=== PATIENT | male | born 1970 | race Caucasian/White ===

== ENCOUNTER 2017-03-18 12:31 | Day surgery (SDC) | payer OTHER ==
[~2017-03-18 12:31] MED LIST: DIPRIVAN 200 MG/20 ML IV ONE; Kenalog-40 IM ONE; Lactated Ringers 1,000 ML IV ONE; Sensorcaine 0.25% 10 ML IJ ONE
--- NOTE | 2017-03-18 17:19 | XRAY ---
11 seconds fluoroscopy time in surgery for left side L2-5 MBB.
--- NOTE | 2017-03-20 02:42 | XRAY ---
Indication: Left L2-L5 MBB. Intraoperative fluoroscopy was provided for 11 seconds. Single digital spot image submitted for interpretation demonstrates 4 posterior spinal needles with the tips projected over the expected course of the left L2-L5 nerve roots. Correlate with intraoperative findings/report.
== END 2017-03-18 14:10 | disposition home or self-care (01) ==
LOC: SDC-PAIN 12:31
PROVIDERS: ATTEND Pain Medicine Interventional Pain Medicine
DX: G56.01 Carpal tunnel syndrome, right upper limb (principal); M51.26 Other intervertebral disc displacement, lumbar region; M54.5 Low back pain; Z79.891 Long term (current) use of opiate analgesic
CPT/HCPCS: 64493; 64494; 64495; 72020; 77003; J2704; J3301

== ENCOUNTER 2020-03-12 05:16 | Emergency (ER) | payer OTHER ==
[2020-03-12 05:23] VITALS: O2SAT 98
--- NOTE | 2020-03-12 05:38 | ERPHSYRPT ---
- History of Present Illness Time Seen by Provider: 03/12/20 05:32 Source: patient Exam Limitations: no limitations Patient Subjective Stated Complaint: pt c/o tooth pain due to broken tooth/ abscess Triage Nursing Assessment: pt c/o tooth pain to rt upper side front tooth, due to broke tooth off yesterday while eating pizza. Pt states, "its abscessed". Pain and swelling to area. Physician History: PT has hx of some dental problems and began to note swelling of face with tenderness at broken Right upper tooth yesterday after eating pizza. He is swallowing OK . the digastric triangle is supple as is floor of mouth. percussion of the tooth reproduces pain consistently. No meningismus Timing/Duration: abrupt onset, days Severity: moderate ENT Location: dental Prearrival Treatment: over the counter meds Modifying Factors: Improves With: other (eating produces pain) Associated Symptoms: facial pain/swelling, jaw pain, tooth pain, No drooling Allergies/Adverse Reactions: No Known Drug Allergies Allergy (Verified 03/12/20 05:28) Hx Tetanus, Diphtheria Vaccination/Date Given: Yes Hx Influenza Vaccination/Date Given: No Hx Pneumococcal Vaccination/Date Given: No Immunizations Up to Date: Yes Travel Risk - International Travel Have you traveled outside of the country in past 3 weeks: No Have you or anyone close to you been diagnosed with or: No Do your reside in a community with a known COVID-19 case?: Yes If Yes where:: [place] - Coronavirus Screening Has patient experienced Coronavirus symptoms: No - Review of Systems Constitutional: No Fever, No Chills Eyes: No Symptoms Ears, Nose, & Throat: Other (tender right upper tooth) Respiratory: No Cough, No Dyspnea Cardiac: No Chest Pain, No Edema, No Syncope Abdominal/Gastrointestinal: No Abdominal Pain, No Nausea, No Vomiting, No Diarrhea Genitourinary Symptoms: No Dysuria Musculoskeletal: No Back Pain, No Neck Pain Skin: No Symptoms, No Rash Neurological: No Dizziness, No Focal Weakness, No Sensory Changes Psychological: No Symptoms Endocrine: No Symptoms Hematologic/Lymphatic: No Symptoms Immunological/Allergic: No Symptoms All Other Systems: Reviewed and Negative - Past Medical History Pertinent Past Medical History: Yes Neurological History: No Pertinent History ENT History: No Pertinent History Cardiac History: No Pertinent History Respiratory History: No Pertinent History Endocrine Medical History: No Pertinent History Musculoskeletal History: Arthritis, Degenerative Disk Disease, Fractures GI Medical History: No Pertinent History History: No Pertinent History Psycho-Social History: No Pertinent History Male Reproductive Disorders: No Pertinent History - Past Surgical History Past Surgical History: No - Social History Smoking Status: Former smoker Exposure to second hand smoke: Yes Drug Use: none Patient Lives Alone: No - Nursing Vital Signs Nursing Vital Signs: Initial Vital Signs Temperature 98.1 F 03/12/20 05:22 Pulse Rate 111 H 03/12/20 05:22 Respiratory Rate 18 03/12/20 05:22 Blood Pressure 194/124 03/12/20 05:22 O2 Sat by Pulse Oximetry 98 03/12/20 05:22 Pain Scale Pain Intensity 6 - Physical Exam General Appearance: no apparent distress, alert Eye Exam: bilateral eye: PERRL, EOMI Ear Exam: bilateral ear: auricle normal, canal normal, TM normal Nasal Exam: normal inspection Throat Exam: pharynx normal, moist mucus membranes, No tonsillar exudate Neck Exam: normal inspection, non-tender, supple, full range of motion, trachea midline, No lymphadenopathy (R), No lymphadenopathy (L), No Brudzinski's sign, No Kernig's sign, No meningismus Cardiovascular/Respiratory Exam: normal breath sounds, regular rate/rhythm Abdominal Exam: non-tender, soft Neurologic Exam: alert, oriented x 3, sensation nml, No motor deficits Skin Exam: normal color, warm, dry SpO2 Interpretation: normal SpO2: 98 O2 Delivery: Room Air - Course Nursing assessment & vital signs reviewed: Yes Ordered Tests: Active Orders 24 hr Category Date Time Status Isolation, Initiate & Maintain Q4H Care 03/12/20 05:28 Active - Progress Progress: improved, re-examined Progress Note: 03/12/20 05:56 pt has no headache no CP or shortness of breath or outward signs and/or symptoms of immediate end organ effects from his elevated BP at this time and the source of pain is likely producing and contributing to his elevated BP reading at this time. 03/12/20 06:05 Per patient he is on BP med and has run out and it has run out but has been forgetting to renew this it is amlodipine and HCTZ and will see his Dr to renew this this week and return meantime if any problems. 05/25/20 06:16 Counseled pt/family regarding: diagnosis, need for follow-up - Departure Departure Disposition: Home Clinical Impression: dental abscess right upper, Hypertension Condition: Good Critical Care Time: No Referrals: PAUL SINGH MD [Primary Care Provider] - Instructions: Tooth Abscess (DC), Tooth Decay, Adult (DC), High Blood Pressure in Adults Additional Instructions: followup with your dentist this week as planned. return meantime if not improving, fever, vomiting , trouble swallowing or other concerns. followup with your Dr for treatment of your blood pressure also this week as prescription may need adjustment. Take your BP medicine daily , and return meantime if the blood pressure does not respond and return to normal levels or if any symptoms such as chest pain, shortness of breath headache , dizziness or other concerns. this will require monitoring of your potassium with your Dr. also and adjustment of your meds for optimal control. Prescriptions: Hydrocodone/APAP 5-325 Tab^^^ [[place] 5-325 Tablet^^^] 1 tab PO Q6HPRN PRN #14 tablet MDD 6 PRN Reason: Pain Amlodipine/Valsartan/Hcthiazid [Tivid-Gkfka-Kzhc 5-160-12.5 mg] 1 each PO DAILY #20 tablet Amoxicillin/Potassium Clav [Augmentin 875-125 Tablet] 875 mg PO BID #20 tablet
[2020-03-12] MEDS ORDERED: Augmentin 875-125 Tablet PO ONE (05:54)
[2020-03-12] MEDS ORDERED: NORCO 5/325 MG PO ONE (05:54)
[2020-03-12] MEDS ORDERED: NORCO 5/325 MG ONE (05:58)
[2020-03-12] MEDS ORDERED: Augmentin 875-125 Tablet ONE (05:58)
[2020-03-12] MEDS ORDERED: NORVASC 5 MG ONE (06:18)
[2020-03-12] MEDS ORDERED: NORVASC 5 MG PO ONE (06:19)
[2020-03-12] MEDS ORDERED: hydroDIURIL 25 MG ONE (06:23)
[2020-03-12] MEDS ORDERED: DIOVAN 80 MG ONE (06:23)
[2020-03-12] MEDS ORDERED: DIOVAN 80 MG PO ONE (06:23)
[2020-03-12 07:06] VITALS: BP 188/124; PULSE 85
[2020-03-12] MEDS ORDERED: hydroDIURIL 25 MG PO SCH (10:00)
== END 2020-03-12 07:20 | disposition home or self-care (01) ==
LOC: ED 05:16
DX: K04.7 Periapical abscess without sinus (principal); I10 Essential (primary) hypertension; S02.5XXA Fracture of tooth (traumatic), initial encounter for closed fracture
CPT/HCPCS: 99283; A9270-GY

== ENCOUNTER 2021-06-18 20:39 | Emergency (ER) | payer OTHER ==
--- NOTE | 2021-06-18 21:36 | ERPHSYRPT ---
- History of Present Illness Time Seen by Provider: 06/18/21 20:57 Source: patient Exam Limitations: no limitations Patient Subjective Stated Complaint: pt states "I was around a covid positive person and now I have a cough and fever." Triage Nursing Assessment: pt ambulated into the er; pt is axo x4; c/o cough and fever; pt states that he was around a covid positive person; pt states that he took tylenol for fever 6 hours ago; pt states that he has a dry hacking cough; no cough present at time of assessment; do distress present at time of assessment; pt O2 100% on room; lung sounds clear in all lobes; clear heart tone; temp of 101.4; hypertension Physician History: 50 years old fairly healthy male presented to ER with chief complaint of flulike symptoms for the last 2 days after he had a positive exposure to known COVID-19 patient. Patient reports low-grade fever with a T-max of 102 which does respond to Tylenol with associated minimal dry cough and nasal congestion. No chest pain or shortness of breath. No abdominal pain nausea vomiting. Patient wants to be tested for COVID-19. Timing/Duration: day(s) (2), constant, gradual onset, worse Cough Quality/Degree: mild, dry cough Possible Cause: illness exposure Modifying Factors: Improves With: nothing Associated Symptoms: fever, chills, cough, headache, lightheadedness, muscle aches, nasal congestion, sinus infection, sore throat, No chest pain/soreness, No facial pain, No shortness of breath Allergies/Adverse Reactions: No Known Drug Allergies Allergy (Verified 06/18/21 20:59) Hx Tetanus, Diphtheria Vaccination/Date Given: Yes Hx Influenza Vaccination/Date Given: No Hx Pneumococcal Vaccination/Date Given: No Travel Risk - International Travel Have you traveled outside of the country in past 3 weeks: No - Coronavirus Screening Are you exhibiting any of the following symptoms?: Yes Symptoms: Fever, Cough: New Onset, Headaches/Body Aches/Fatigue Close contact with a COVID-19 positive Pt in past 14-21 Days: Yes - Vaccine Status Have you recieved a Covid-19 vaccination: No - Review of Systems Constitutional: Fever, Chills, Fatigue, Weakness Eyes: No Symptoms Ears, Nose, & Throat: Nose Congestion Respiratory: Cough, No Dyspnea, No Dyspnea on Exertion (GRAHAM), No Wheezing Cardiac: No Symptoms Abdominal/Gastrointestinal: No Symptoms Genitourinary Symptoms: No Symptoms Musculoskeletal: Myalgias Skin: No Symptoms Neurological: No Symptoms Psychological: No Symptoms Endocrine: No Symptoms Hematologic/Lymphatic: No Symptoms Immunological/Allergic: No Symptoms - Past Medical History Pertinent Past Medical History: Yes Neurological History: No Pertinent History ENT History: No Pertinent History Cardiac History: No Pertinent History Respiratory History: No Pertinent History Endocrine Medical History: No Pertinent History Musculoskeletal History: Arthritis, Degenerative Disk Disease, Fractures GI Medical History: No Pertinent History History: No Pertinent History Psycho-Social History: No Pertinent History Male Reproductive Disorders: No Pertinent History - Past Surgical History Past Surgical History: No - Social History Smoking Status: Current every day smoker Exposure to second hand smoke: Yes Drug Use: none Patient Lives Alone: No - Nursing Vital Signs Nursing Vital Signs: Initial Vital Signs Temperature 101.4 F 06/18/21 21:00 Pulse Rate 89 06/18/21 21:00 Respiratory Rate 18 06/18/21 21:00 Blood Pressure 189/109 06/18/21 21:00 O2 Sat by Pulse Oximetry 100 06/18/21 21:00 Pain Scale Pain Intensity 5 - Physical Exam General Appearance: no apparent distress, alert Eye Exam: PERRL/EOMI, eyes nml inspection Ears, Nose, Throat Exam: TMs normal, pharyngeal erythema Neck Exam: normal inspection, non-tender, supple, full range of motion Respiratory Exam: normal breath sounds, lungs clear Cardiovascular Exam: regular rate/rhythm, normal heart sounds Gastrointestinal/Abdomen Exam: soft, normal bowel sounds, No tenderness Back Exam: normal inspection, normal range of motion Extremity Exam: normal inspection, normal range of motion Neurologic Exam: alert, oriented x 3, cooperative Skin Exam: normal color SpO2 Interpretation: normal SpO2: 100 O2 Delivery: Room Air Ordered Tests: Active Orders 24 hr Category Date Time Status CHEST 1 VIEW (PORTABLE) Stat Exams 06/18/21 21:09 Taken Medication Summary Discontinued Medications Generic Name Dose Route Start Last Admin Trade Name Freq PRN Reason Stop Dose Admin Acetaminophen 1,000 mg 06/18/21 21:55 06/18/21 21:56 Tylenol Extra Strength 500 Mg PO 06/18/21 21:56 1,000 mg STAT ONE Administration Acetaminophen Confirm 06/18/21 21:55 Tylenol Extra Strength 500 Mg Administered 06/18/21 21:56 Dose 1,000 mg .ROUTE .STK-MED ONE - Progress Progress: improved Air Movement: good Progress Note: Given Tylenol for symptomatic relief. Lungs bilateral clear to auscultation and x-rays questionable airspace disease on the right, will start him on Zithromax, Decadron and albuterol. COVID-19 testing obtained. Patient is maintaining vitals with saturation around 98% on room air without any tachypnea tachycardia or toxic appearance. Limited contact/droplet precautions Supportive care recommended 06/18/21 22:04 Blood Culture(s) Obtained: No Antibiotics given: No Counseled pt/family regarding: diagnosis, need for follow-up, rad results - Departure Departure Disposition: Home Clinical Impression: Viral syndrome, Suspected COVID-19 virus infection Condition: Stable Critical Care Time: No Referrals: PAUL SINGH MD [Primary Care Provider] - Follow Up with PCP/3 days Instructions: Cough, Adult (DC) Additional Instructions: Use contact/droplet precautions until your COVID-19 test is back. Tylenol as needed for fever greater than 100.4. Keep yourself well-hydrated. Return to ER for persistent high-grade fever, worsening cough or if develop shortness of breath etc. Prescriptions: Azithromycin 250 mg PO DAILY 4 Days #4 tablet Dexamethasone [Decadron] 6 mg PO DAILY 5 Days #5 tablet Albuterol 8 gm Mdi Hfa [Ventolin Hfa MDI] 8 gm IH Q4H #1 gm
[2021-06-18] MEDS ORDERED: TYLENOL EXTRA STRENGTH 500 MG ONE (21:55)
[2021-06-18] MEDS ORDERED: TYLENOL EXTRA STRENGTH 500 MG PO ONE (21:55)
[2021-06-18] MEDS ORDERED: Zithromax 250 MG TABLET PO ONE (22:05)
[2021-06-18] MEDS ORDERED: DECADRON 10MG INJ. PO ONE (22:05)
[2021-06-18] MEDS ORDERED: Zithromax 250 MG TABLET ONE (22:26)
[2021-06-18] MEDS ORDERED: DECADRON 10MG INJ. ONE (22:26)
[2021-06-18 22:43] VITALS: BP 161/104; PULSE 88; O2SAT 99
--- NOTE | 2021-06-19 09:01 | XRAY ---
Indication: Suspect Covid 19. Comparison: None Portable chest demonstrates normal heart, lungs, and bony thorax with a few incidental left lung calcified granulomas.
== END 2021-06-18 22:43 | disposition home or self-care (01) ==
LOC: ED 20:39
DX: B34.9 Viral infection, unspecified (principal); Z20.822 Contact with and (suspected) exposure to COVID-19; R05 Cough; R50.9 Fever, unspecified
CPT/HCPCS: 71045; 99284; U0003; J1100; A9270-GY

== ENCOUNTER 2022-06-23 23:10 | Emergency (ER) | payer OTHER ==
[2022-06-23] MEDS ORDERED: TORAdol 30 mg Injection IM ONE (23:34)
[2022-06-23] MEDS ORDERED: Augmentin 875-125 Tablet PO ONE (23:34)
[2022-06-23] MEDS ORDERED: TORAdol 30 mg Injection ONE (23:36)
[2022-06-23] MEDS ORDERED: Augmentin 875-125 Tablet ONE (23:37)
--- NOTE | 2022-06-23 23:49 | ERPHSYRPT ---
- History of Present Illness Time Seen by Provider: 06/23/22 23:28 Source: patient Exam Limitations: no limitations Patient Subjective Stated Complaint: pt states "I have a tooth abscess." Triage Nursing Assessment: pt ambulated into the er; pt is axo x4; c/o toothache; pt states 7/10 pain to rt side of face; pt has multiple caries; multiple missing teeth; swelling present to rt lower jaw; hypertension Physician History: 51-year-old male with multiple broken teeth with periodontal disease presented in the ER with lower jaw pain and swelling progressively worsening for 1 week, moderate to severe sharp more with movements. No fever or chills reported. Has upcoming appointment with dentist this week. Timing/Duration: gradual onset, weeks (1) Severity: moderate, severe ENT Location: dental Prearrival Treatment: over the counter meds Associated Symptoms: tooth pain Allergies/Adverse Reactions: No Known Drug Allergies Allergy (Verified 06/23/22 23:16) Home Medications: Lisinopril/Hydrochlorothiazide [Zestoretic 20-12.5 mg Tablet] 1 each PO DAILY 06/23/22 [History] Hx Tetanus, Diphtheria Vaccination/Date Given: Yes Hx Influenza Vaccination/Date Given: Yes Hx Pneumococcal Vaccination/Date Given: No Travel Risk - International Travel Have you traveled outside of the country in past 3 weeks: No - Coronavirus Screening Are you exhibiting any of the following symptoms?: No Close contact with a COVID-19 positive Pt in past 14-21 Days: No - Vaccine Status Have you recieved a Covid-19 vaccination: No - Review of Systems Constitutional: No Symptoms Eyes: No Symptoms Ears, Nose, & Throat: Loose Teeth Respiratory: No Symptoms Cardiac: No Symptoms Musculoskeletal: No Symptoms Skin: No Symptoms Neurological: No Symptoms Psychological: No Symptoms Immunological/Allergic: No Symptoms - Past Medical History Pertinent Past Medical History: Yes Neurological History: No Pertinent History ENT History: No Pertinent History Cardiac History: High Cholesterol Respiratory History: No Pertinent History Endocrine Medical History: No Pertinent History Musculoskeletal History: Arthritis, Degenerative Disk Disease, Fractures GI Medical History: No Pertinent History History: No Pertinent History Psycho-Social History: No Pertinent History Male Reproductive Disorders: No Pertinent History - Past Surgical History Past Surgical History: No - Social History Smoking Status: Current every day smoker Exposure to second hand smoke: Yes Drug Use: none Patient Lives Alone: No - Nursing Vital Signs Nursing Vital Signs: Initial Vital Signs Temperature 97.6 F 06/23/22 23:17 Pulse Rate 99 H 06/23/22 23:17 Respiratory Rate 18 06/23/22 23:17 Blood Pressure 173/103 06/23/22 23:17 O2 Sat by Pulse Oximetry 100 06/23/22 23:17 Pain Scale Pain Intensity 7 - Physical Exam General Appearance: no apparent distress, alert Eye Exam: bilateral eye: normal inspection, PERRL, EOMI Ear Exam: bilateral ear: auricle normal, canal normal, TM normal Nasal Exam: normal inspection Throat Exam: pharynx normal, dental tenderness (Multiple eroded teeth with periodontal disease, swollen right lower jaw, firm consistency, negative fluctuation.) Neck Exam: normal inspection, supple, full range of motion Cardiovascular/Respiratory Exam: normal breath sounds, regular rate/rhythm Neurologic Exam: alert, oriented x 3, 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, normal m ood/affect Skin Exam: normal color SpO2 Interpretation: normal SpO2: 100 O2 Delivery: Room Air Ordered Tests: Medication Summary Discontinued Medications Generic Name Dose Route Start Last Admin Trade Name oBlaq PRN Reason Stop Dose Admin Amoxicillin/Clavulanate Potassium 875 mg 06/23/22 23:34 06/23/22 23:37 Amox Tr/Potassium Clavulanate 875 Mg Tablet PO 06/23/22 23:35 875 mg STAT ONE Administration Amoxicillin/Clavulanate Potassium Confirm 06/23/22 23:37 Amox Tr/Potassium Clavulanate 875 Mg Tablet Administered 06/23/22 23:38 Dose 875 mg .ROUTE .STK-MED ONE Ketorolac Tromethamine 30 mg 06/23/22 23:34 06/23/22 23:37 Ketorolac Tromethamine 30 Mg/Ml Inj IM 06/23/22 23:35 30 mg STAT ONE Administration Ketorolac Tromethamine Confirm 06/23/22 23:36 Ketorolac Tromethamine 30 Mg/Ml Inj Administered 06/23/22 23:37 Dose 30 mg .ROUTE .STK-MED ONE - Progress Progress: improved, pain not gone completely Progress Note: 06/23/22 23:50 Given Toradol for symptomatic relief, started on antibiotics. Recommended outpatient dental follow-up. Counseled pt/family regarding: diagnosis, need for follow-up - Departure Departure Disposition: Home Clinical Impression: Dental infection Condition: Stable Critical Care Time: No Referrals: PAUL SINGH MD [Primary Care Provider] - Follow up/PCP as directed Instructions: Tooth Abscess (DC), Dental Pain (DC) Additional Instructions: Keep appointment with your dentist. Take Tylenol/ibuprofen as needed. Return to ER for increasing pain swelling, fever chills etc. Prescriptions: Ibuprofen 600 mg PO Q6HPRN PRN 10 Days #20 tablet PRN Reason: Pain Amox Tr/Potass Clav. 875 mg [Augmentin 875-125 Tablet] 875 mg PO BID #14 tablet
[2022-06-24 00:02] VITALS: BP 163/102; PULSE 87; O2SAT 99
== END 2022-06-24 00:05 | disposition home or self-care (01) ==
LOC: ED 23:10
DX: K04.7 Periapical abscess without sinus (principal); K08.89 Other specified disorders of teeth and supporting structures; E78.5 Hyperlipidemia, unspecified; Z72.0 Tobacco use; Z79.899 Other long term (current) drug therapy; Z28.310 Unvaccinated for COVID-19
CPT/HCPCS: 96372; 99283; J1885; A9270-GY

== ENCOUNTER 2024-09-28 19:28 | Emergency (ER) | payer OTHER ==
[2024-09-28 19:40] VITALS: TEMP 97.7
--- NOTE | 2024-09-28 20:26 | ERPHSYRPT ---
- History of Present Illness Time Seen by Provider: 09/28/24 20:24 Source: patient Exam Limitations: no limitations Patient Subjective Stated Complaint: C/O Fall. Patient states he fell and hit his head. Patient states his mother found him on the ground. He estimates he was lying there for 30 minutes prior to her finding him. When asked why he didn't get up, patient answered, "I don't know, I think I might have been knocked out." Triage Nursing Assessment: Patient arrived by ambulance. He is alert and oriented. No SOB. Skin is warm to touch. WILSON WNL. Cooperative with staff but refusing rectal temperature. Physician History: Patient is a 53-year-old male presents to our ED for evaluation of "found down". Patient was reportedly at his home. Patient's mother reports finding him laying on his home deck. Patient states that he was lying for approximately 30 minutes prior to her finding him. Patient is not sure whether or not he passed out. He reports walking on his deck. He states it was "slick". Patient believes he slipped fell and hit his head and subsequently "passed out". No associated chest pain or shortness of breath. No nausea vomiting or diaphoresis. Patient has no specific complaints. No neck pain. Cervical spine cleared clinically. Patient voices no other complaints or concerns at this time. Portions of this note were created with voice recognition technology. There may be grammatical, spelling, punctuation or sound alike errors Timing/Duration: today Severity: moderate Modifying Factors: Improves With: nothing Associated Symptoms: denies symptoms Allergies/Adverse Reactions: No Known Drug Allergies Allergy (Verified 09/28/24 19:37) Home Medications: Lisinopril/Hydrochlorothiazide [Zestoretic 20-12.5 mg Tablet] 1 each PO DAILY 06/23/22 [History] Hx Tetanus, Diphtheria Vaccination/Date Given: Yes Hx Influenza Vaccination/Date Given: Yes Hx Pneumococcal Vaccination/Date Given: No Immunizations Up to Date: Yes Travel Risk - International Travel Have you traveled outside of the country in past 3 weeks: No - Emerging Infectious Disease Are you exhibiting symptoms associated with any current EIDs: No - Review of Systems Constitutional: No Symptoms, No Fever, No Chills Eyes: No Symptoms Ears, Nose, & Throat: No Symptoms Respiratory: No Symptoms, No Cough, No Dyspnea Cardiac: No Symptoms, No Chest Pain, No Edema, No Syncope Abdominal/Gastrointestinal: No Symptoms, No Abdominal Pain, No Nausea, No Vomiting, No Diarrhea Genitourinary Symptoms: No Symptoms, No Dysuria Musculoskeletal: No Symptoms, No Back Pain, No Neck Pain Skin: No Symptoms, No Rash Neurological: No Symptoms, No Dizziness, No Focal Weakness, No Sensory Changes Psychological: No Symptoms Endocrine: No Symptoms Hematologic/Lymphatic: No Symptoms Immunological/Allergic: No Symptoms All Other Systems: Reviewed and Negative - Past Medical History Pertinent Past Medical History: Yes Neurological History: No Pertinent History ENT History: No Pertinent History Cardiac History: High Cholesterol, Hypertension Respiratory History: No Pertinent History Endocrine Medical History: No Pertinent History Musculoskeletal History: Arthritis, Degenerative Disk Disease, Fractures GI Medical History: No Pertinent History History: No Pertinent History Psycho-Social History: No Pertinent History Male Reproductive Disorders: No Pertinent History - Past Surgical History Past Surgical History: No - Social History Smoking Status: Current every day smoker Exposure to second hand smoke: Yes Drug Use: none Patient Lives Alone: No - Social Determinants of Health Will the patient participate in the screening: Declined to provide - Nursing Vital Signs Nursing Vital Signs: Initial Vital Signs Temperature 97.7 F 09/28/24 19:28 Pulse Rate 86 09/28/24 19:28 Respiratory Rate 19 09/28/24 19:28 O2 Sat by Pulse Oximetry 97 09/28/24 19:28 Pain Scale Pain Intensity 0 - Physical Exam General Appearance: no apparent distress, alert Eye Exam: PERRL/EOMI, eyes nml inspection Ears, Nose, Throat Exam: normal ENT inspection, TMs normal, pharynx normal, mois t mucous membranes Neck Exam: normal inspection, non-tender, supple, full range of motion Respiratory Exam: normal breath sounds, lungs clear, No respiratory distress Cardiovascular Exam: regular rate/rhythm, normal heart sounds, normal peripheral pulses Gastrointestinal/Abdomen Exam: soft, normal bowel sounds, No tenderness, No mass Back Exam: normal inspection, normal range of motion, No CVA tenderness, No vertebral tenderness Extremity Exam: normal inspection, normal range of motion, pelvis stable Neurologic Exam: alert, oriented x 3, cooperative, normal mood/affect, sensation nml, No motor deficits Skin Exam: normal color, warm, dry, No rash Lymphatic Exam: No adenopathy SpO2 Interpretation: normal SpO2: 93 O2 Delivery: Room Air - Course Nursing assessment & vital signs reviewed: Yes EKG Interpreted by Me: RATE (95), Sinus Rhythm, NORMAL AXIS, prolonged QT interval, NORMAL QRS - Radiology Exams Chest X-ray Interpretation: Interpreted by me (No acute findings) - CT Exams Head CT Interpretation: Tele-radiologist Report (Nonacute senile brain. Bilateral ethmoid sinus disease) Ordered Tests: Active Orders 24 hr Category Date Time Status Product Controller STAT Care 09/28/24 20:27 Active EKG-ER Only STAT Care 09/28/24 20:26 Active IV Insertion STAT Care 09/28/24 20:26 Active Pulse Oximetry (ED) STAT Care 09/28/24 20:26 Active CHEST 1 VIEW (PORTABLE) Stat Exams 09/28/24 21:38 Taken HEAD WITHOUT CONTRAST [CT] Stat Exams 09/28/24 20:32 Taken ACETAMINOPHEN Stat Lab 09/28/24 20:15 Completed CBC W DIFF Stat Lab 09/28/24 20:15 Completed CMP Stat Lab 09/28/24 20:15 Completed ETHYL ALCOHOL Stat Lab 09/28/24 20:15 Completed MAG [MAGNESIUM] Stat Lab 09/28/24 20:30 Completed NT PRO BNPII Stat Lab 09/28/24 20:15 Completed SALICYLATE Stat Lab 09/28/24 20:15 Completed TROPONIN Q4H Lab 09/28/24 20:15 Completed TROPONIN Q4H Lab 09/29/24 00:28 Received TROPONIN Q4H Lab 09/29/24 04:30 Ordered UA W/RFX UR CULTURE Stat Lab 09/29/24 00:38 Ordered Urine Triage Profile Stat Lab 09/29/24 00:38 Ordered Medication Summary Generic Name Dose Route Start Last Admin Trade Name Freq PRN Reason Stop Dose Admin Sodium Chloride 1,000 mls @ 100 mls/hr 09/28/24 20:30 09/28/24 20:41 Sodium Chloride 0.9% 1000 Ml IV 10/28/24 20:29 100 mls/hr .Q10H CHIOMA Administration Lab/Rad Data: Laboratory Result Diagrams 09/28/24 20:15 09/28/24 20:15 Laboratory Results 09/28/24 09/28/24 09/28/24 Range/Units 20:30 20:15 20:15 WBC (4.23-9.07) x10^3/uL RBC (4.63-6.08) x10^6/uL Hgb (13.7-17.5) g/dL Hct (40.1-51.0) % MCV (79.0-92.2) fL MCH (25.7-32.2) pg MCHC (32.3-36.5) g/dL RDW (11.6-14.4) % Plt Count (163-337) x10^3/uL MPV (9.4-12.4) fL Gran % (34.0-67.9) % Immature Gran % (Auto) (0.001-0.429) % Nucleat RBC Rel Count (0.00-0.2) % Eos # (Auto) (0.04-0.54) x10^3/uL Immature Gran # (Auto) (0.001-0.031) x10^3u/L Absolute Lymphs (auto) (1.32-3.57) x10^3/uL Absolute Monos (auto) (0.30-0.82) x10^3/uL Absolute Nucleated RBC (0.00-0.012) x10^3u/L Lymphocytes % (21.8-53.1) % Monocytes % (5.3-12.2) % Eosinophils % (0.8-7.0) % Basophils % (0.2-1.2) % Absolute Granulocytes (1.78-5.38) x10^3/uL Basophils # (0.01-0.08) x10^3/uL Sodium (135-145) mmol/L Potassium (3.5-5.1) mmol/L Chloride (98-107) mmol/L Carbon Dioxide (22-30) mmol/L Anion Gap (5-15) MEQ/L BUN (9-20) mg/dL Creatinine (0.66-1.25) mg/dL Estimated GFR ML/MIN Glucose (74-106) mg/dL Calcium (8.4-10.2) mg/dL Magnesium 2.3 (1.6-2.3) mg/dL Total Bilirubin (0.2-1.3) mg/dL AST (17-59) U/L ALT (0-50) U/L Alkaline Phosphatase (38-126) U/L Troponin I 0.019 (0.000-0.033) ng/mL NT-Pro-B Natriuret Pep (<300) pg/mL Serum Total Protein (6.3-8.2) g/dL Albumin (3.5-5.0) g/dL Salicylates < 1.0 L (2-20) mg/dL Acetaminophen < 10 L (10-30) ug/ml Ethyl Alcohol (0-10) mg/dL 09/28/24 09/28/24 Range/Units 20:15 20:15 WBC 10.0 H (4.23-9.07) x10^3/uL RBC 5.22 (4.63-6.08) x10^6/uL Hgb 14.2 (13.7-17.5) g/dL Hct 43.7 (40.1-51.0) % MCV 83.7 (79.0-92.2) fL MCH 27.2 (25.7-32.2) pg MCHC 32.5 (32.3-36.5) g/dL RDW 14.0 (11.6-14.4) % Plt Count 327 (163-337) x10^3/uL MPV 12.3 (9.4-12.4) fL Gran % 41.9 (34.0-67.9) % Immature Gran % (Auto) 0.3 (0.001-0.429) % Nucleat RBC Rel Count 0.0 (0.00-0.2) % Eos # (Auto) 0.36 (0.04-0.54) x10^3/uL Immature Gran # (Auto) 0.03 (0.001-0.031) x10^3u/L Absolute Lymphs (auto) 4.18 H (1.32-3.57) x10^3/uL Absolute Monos (auto) 1.08 H (0.30-0.82) x10^3/uL Absolute Nucleated RBC 0.00 (0.00-0.012) x10^3u/L Lymphocytes % 41.7 (21.8-53.1) % Monocytes % 10.8 (5.3-12.2) % Eosinophils % 3.6 (0.8-7.0) % Basophils % 1.7 H (0.2-1.2) % Absolute Granulocytes 4.21 (1.78-5.38) x10^3/uL Basophils # 0.17 H (0.01-0.08) x10^3/uL Sodium 140 (135-145) mmol/L Potassium 3.4 L (3.5-5.1) mmol/L Chloride 106 (98-107) mmol/L Carbon Dioxide 26 (22-30) mmol/L Anion Gap 12.3 (5-15) MEQ/L BUN 23 H (9-20) mg/dL Creatinine 1.19 (0.66-1.25) mg/dL Estimated GFR 74.0 ML/MIN Glucose 142 H (74-106) mg/dL Calcium 9.6 (8.4-10.2) mg/dL Magnesium (1.6-2.3) mg/dL Total Bilirubin 0.40 (0.2-1.3) mg/dL AST 34 (17-59) U/L ALT 29 (0-50) U/L Alkaline Phosphatase 86 (38-126) U/L Troponin I (0.000-0.033) ng/mL NT-Pro-B Natriuret Pep 3510 (<300) pg/mL Serum Total Protein 7.4 (6.3-8.2) g/dL Albumin 4.4 (3.5-5.0) g/dL Salicylates (2-20) mg/dL Acetaminophen (10-30) ug/ml Ethyl Alcohol < 10 (0-10) mg/dL - Progress Progress: improved Progress Note: 53-year-old male presents to our ED for evaluation after being found down. Mother presented to our ED. She advised that patient was short of breath when he was found down. Patient states he slipped and fell. Mother concerned as he appeared disoriented at the time he was found and complained of shortness of breath. CT head negative for acute intracranial pathology. EKG reveals a prolonged QT with T wave inversions. Abnormal EKG. magnesium 2.3. Initial troponin 0.019. Repeat troponin pending. We intended to admit patient for further evaluation and treatment. Patient slept for a period of time then woke up at approximately 1230. Patient now requesting to be discharged. We advised patient of his abnormal EKG and advised him that additional testing is necessary. Patient declined. Patient states he wanted to leave AMA. Patient is of sound mind. Patient is appropriate to make informed and independent medical decisions. Patient understands that leaving AGAINST MEDICAL ADVICE can result in delayed diagnosis, increased risk of morbidity, mortality, short and long-term disability including . In spite of these risks, patient has decided to leave AGAINST MEDICAL ADVICE. Patient understands that he may return to our ED at any point if he reconsiders. Patient agrees to follow-up with his primary care doctor within 48 hours for reevaluation. Patient voices no other complaints or concerns at this time. We will release patient AGAINST MEDICAL ADVICE per their request. Complexity of problem addressed is moderate acute complicated. No critical care time. Complexity data reviewed and analyzed is moderate. Test ordered chest reviewed results analyzed and correlated clinically with history and physical exam. Risk of complication and or risk of morbidity/mortality of patient management is low. Vital stable. Time spent to discharge patient AMA is approximately 15 minutes. Patient decided to leave AMA in spite of our discussion of risks. No social determinants of health present to impede follow- up. Portions of this note were created with voice recognition technology. There may be grammatical, spelling, punctuation or sound alike errors 09/29/24 00:46 Counseled pt/family regarding: lab results, diagnosis, rad results - Departure Departure Disposition: AMA Clinical Impression: Prolonged QT interval, Abnormal EKG, Elevated brain natriuretic peptide (BNP) level, Fall, Bilateral ethmoid sinus disease Condition: Stable Critical Care Time: No Referrals: PAUL SINGH MD [Primary Care Provider] - Follow up/PCP as directed Additional Instructions: Discharge/Care Plan JOSE TSE was seen on 09/29/24 in the Emergency Room. The patient was couns eled regarding Diagnosis,Lab results, Imaging studies, need for follow up and when to return to the Emergency Room. Prescriptions given: Discharge Note I have spoken with the patient and/or caregivers. I have explained the patient's condition, diagnosis and treatment plan based on the information available to me at this time. I have answered the patient's and/or caregiver's questions and addressed any concerns. The patient and/or caregivers have as good understanding of the patient's diagnosis, condition and treatment plan as can be expected at this point. The vital signs have been stable. The patient's condition is stable and appropriate for discharge from the emergency department. The patient will pursue further outpatient evaluation with the primary care physician or other designated or consulting physician as outlined in the discharge instructions. The patient and/or caregivers are agreeable to this plan of care and follow-up instructions have been explained in detail. The patient and/or caregivers have received these instruction. The patient/and or caregivers are aware that any significant change in condition or worsening of symptoms should prompt an immediate return to this or the closest emergency department or call 911.
[2024-09-28 20:32] LABS: Absolute Neutrophil Ct (ANC) 4.21 x10^3/uL (1.78-5.38); BASOPHIL % 1.7 % (0.2-1.2); Basophil (Absolute #) 0.17 x10^3/uL (0.01-0.08); Eosinophil % 3.6 % (0.8-7.0); Eosinophil (Absolute #) 0.36 x10^3/uL (0.04-0.54); Hematocrit 43.7 % (40.1-51.0); Hemoglobin 14.2 g/dL (13.7-17.5); IMMATURE GRAN # 0.03 x10^3u/L (0.001-0.031); IMMATURE GRAN % 0.3 % (0.001-0.429); Lymphocyte (Absolute #) 4.18 x10^3/uL (1.32-3.57); Lymphocytes % 41.7 % (21.8-53.1); Mean Cell Volume 83.7 fL (79.0-92.2); Mean Corpuscular Hemoglobin 27.2 pg (25.7-32.2); Mean Corpuscular Hgb Concent. 32.5 g/dL (32.3-36.5); Mean Platelet Volume 12.3 fL (9.4-12.4); Monocyte (Absolute #) 1.08 x10^3/uL (0.30-0.82); Monocytes % 10.8 % (5.3-12.2); Neutrophil % 41.9 % (34.0-67.9); Platelet Count 327 x10^3/uL (163-337); Red Blood Count 5.22 x10^6/uL (4.63-6.08)
[2024-09-28] MEDS ORDERED: Sodium Chloride 0.9% 1000 ML 1,000 ML ONE (20:38)
[2024-09-28] MEDS: Sodium Chloride 0.9% 1000 ML 1,000 ML IV SCH (20:41)
[2024-09-28 20:48] LABS: ALBUMIN 4.4 g/dL (3.5-5.0); ALKALINE PHOSPHATASE 86 U/L (38-126); ANION GAP 12.3 MEQ/L (5-15); BLOOD UREA NITROGEN 23 mg/dL (9-20); CHLORIDE 106 mmol/L (98-107); Calcium 9.6 mg/dL (8.4-10.2); Carbon Dioxide 26 mmol/L (22-30); Creatinine 1 1.19 mg/dL (0.66-1.25); ETHYL ALCOHOL < 10 mg/dL (0-10); Glucose 142 mg/dL (74-106); NT PRO BNPII 3510 pg/mL (<300); Potassium 3.4 mmol/L (3.5-5.1); SGOT/AST 34 U/L (17-59); SGPT/ALT 29 U/L (0-50); SODIUM 140 mmol/L (135-145); Total Protein 7.4 g/dL (6.3-8.2)
[2024-09-28 23:53] LABS: ACETAMINOPHEN < 10 ug/ml (10-30); SALICYLATE < 1.0 mg/dL (2-20)
[2024-09-29 00:51] VITALS: O2SAT 93
[2024-09-29 01:12] VITALS: BP 149/93; PULSE 87; RESP 16
[2024-09-29 02:52] LABS: Appearance Clear (Clear); Bacteria None Seen /HPF (None Seen); Bilirubin Negative (Negative); Blood Negative (Negative); Epithelial Cells None Seen /HPF (None Seen); Glucose, Urine Negative (Negative); Ketones Negative (Negative); Leukocyte Esterase Negative (Negative); Nitrite Negative (Negative); Protein,Urine Dip Negative (Negative); RBC 0-2 /HPF (0-5); WBC 0-2 /HPF (0-5)
[2024-09-29 03:03] LABS: Barbiturate,Urine NEGATIVE (NEGATIVE); Benzodiazepine,Urine NEGATIVE (NEGATIVE); Cocaine,Urine NEGATIVE (NEGATIVE); Methadone,Urine NEGATIVE (NEGATIVE); Opiate,Urine NEGATIVE (NEGATIVE); PCP,Urine NEGATIVE (NEGATIVE); THC,Urine NEGATIVE (NEGATIVE)
[2024-09-29 03:21] LABS: Amphetamine,Urine POSITIVE (NEGATIVE)
--- NOTE | 2024-09-29 08:32 | XRAY ---
Indication: Head injury following fall. Pain. Loss of consciousness. Multiple contiguous axial images obtained through the head without contrast. Comparison: None Age-appropriate global atrophy and minimal periventricular degenerative micro-ischemia bilaterally. No acute intracranial hemorrhage, abnormal extra-axial fluid collection, or mass effect. Fourth ventricle is midline without hydrocephalus. Andrade-white matter differentiation preserved. Bony calvarium intact. Moderate mucosal thickening both ethmoid and lesser degree both frontal sinuses. Mastoid air cells are clear. Impression: Nonacute senile brain. Incidental paranasal sinus disease.
--- NOTE | 2024-09-29 08:49 | XRAY ---
Indication: Short of breath. Comparison: June 18, 2021 Portable chest remains inflated and clear again with a few incidental tiny calcified granulomas. Heart not enlarged. Bony thorax intact. No new/acute findings.
== END 2024-09-29 00:52 | disposition left against medical advice (07) ==
LOC: ED 19:28
DX: R94.31 Abnormal electrocardiogram [ECG] [EKG] (principal); R79.89 Other specified abnormal findings of blood chemistry; J32.2 Chronic ethmoidal sinusitis; W01.198A Fall on same level from slipping, tripping and stumbling with subsequent striking against other object, initial encounter
CPT/HCPCS: 36415; 70450; 71045; 80053; 80143; 80179; 80307; 81001; 82077; 83735; 83880; 84484; 85025; 93005; 93041; 94760; 99284; 99285